=== PATIENT | male | born 1935 | race Caucasian/White ===

== ENCOUNTER 2016-06-18 13:27 | Inpatient (IN) | payer MEDICARE, OTHER ==
[2016-06-18 14:18] LABS: Hematocrit 38 % (42-52); Hemoglobin 12.9 g/dl (14.0-18.0); Mean Corpuscular HGB Conc 34 g/dl (31-36); Mean Corpuscular Hemoglobin 33 pg (27-31); Mean Corpuscular Volume 98 fL (80-94); Mean Platelet Volume 9 um3 (7.4-10.4); Red Blood Count 3.88 10^6/ul (4.0-5.4); Red Cell Distribution Width 13 % (10.5-15); White Blood Count 8.1 10^3/ul (3.5-10.8)
[2016-06-18 14:19] LABS: Add Diff/Slide Review? Slide Review Added; Comments Flag Yes
[2016-06-18 14:29] LABS: Albumin 4.3 g/dL (3.2-5.2); BUN/Creatinine Ratio 18.6 (8-20); EGFR African American 42.7 (>60); EGFR Non-African American 33.2 (>60); Globulin 3.3 g/dL (2-4); Potassium 4.9 mmol/L (3.5-5.0); Total Bilirubin 0.8 mg/dL (0.2-1.0); Total Protein 7.6 g/dL (6.4-8.9)
[2016-06-18 14:31] LABS: Troponin I 0.01 ng/mL (<0.04)
--- NOTE | 2016-06-18 14:39 | RAD ---
HISTORY: Left-sided numbness COMPARISONS: MRI of the head dated October 21, 2006 TECHNIQUE: Multiple contiguous axial CT scans were obtained of the head without intravenous contrast. FINDINGS: HEMORRHAGE/INFARCT: There is focal hypoattenuation consistent with subacute nonhemorrhagic infarct of the right posterior frontal lobe and anterior parietal lobe, extending into the anterior temporal lobe. Elsewhere, there is no hemorrhage or acute infarct MASSES/SHIFT: There is no mass or shift. EXTRA-AXIAL SPACES: There are no extra-axial fluid collections. SULCI AND VENTRICLES: The sulci and ventricles are normal in size and position for the patient's stated age. CEREBRUM: There is focal hypoattenuation of the right posterior frontal lobe, anterior parietal lobe, and anterior temporal lobe consistent with subacute nonhemorrhagic infarct of the right MCA distribution. This involves approximately one third of the MCA distribution. BRAINSTEM: There are no focal parenchymal abnormalities. CEREBELLUM: There are no focal parenchymal abnormalities. VESSELS: There is calcification of the cavernous segments of the internal carotid arteries bilaterally and of the distal vertebral arteries bilaterally. PARANASAL SINUSES: The paranasal sinuses are clear. ORBITS: The orbits are unremarkable. BONES AND SOFT TISSUE: No bone or soft tissue abnormalities are noted. OTHER: None IMPRESSION: SUBACUTE NONHEMORRHAGIC INFARCT OF THE RIGHT MCA DISTRIBUTION
[2016-06-18] MEDS ORDERED: Ondansetron INJ* 2 MG/ML VIAL IV PRN (15:21)
[2016-06-18] MEDS ORDERED: NS 0.9% 1000 ML* 1,000 ML IV SCH (15:30)
--- NOTE | 2016-06-18 16:13 | CONSULT ---
Consult Consult: 81 yo RHM, PPM, CABG, CKD, presenting with presumed fall out of bed overnight; he cannot clarify; his found him on the floor by the side of the bed at 3am , he was in his usual state of health when they went to bed the night before. He has no visual, speech/bulbar, language, gait or sensorimotor issues. He is on baby ASA at baseline; he may have remotely been on Coumadin (they could not clarify purpose; this may have been post CABG only; they deny/are unaware of any afib history). He has seen Dr Jerome last year, but ? just for NCS and neuropathy workup, with labs as below. Allergies/Meds pristiq, zantac, ASA 81, lisinopril, bisoprolol, lipitor PMH depression, GERD, HTN, HL, CABG, PPM, cataract surgery [facility] SH no tobacco; denies etoh issues vs says routine 2 glasses wine/night; retired; lives with ; ambulates independently at baseline ROS 10 point review negative save as per hpi. general Examination: no apparent distress, no edema, male of stated age Neurologic Examination Mental Status: alert, oriented, fund of knowledge normal, concentration and recent and remote memory observationally intact, fluent speech, reactive affect , no visual neglect. Cranial Nerves: III, IV, V, , VII, VIII, IX, X, XI and XII intact. Funduscopy reveals sharp discs. VFF with questionable inconsistent left lower outer quadrant vs hemianopsia, but confabulation/effort dependent, and looked intact at other times. EOMs intact. Pupils reactive but post surg Motor: normal bulk and tone. Power testing is 5/5. There is no pronator drift or tremor. Sensory: vibration and touch are intact save extinction to double simultaneous stim on left; no agrephesthesia left hand Reflexes: 1+ upper extremities and knees; ankles absent. Plantar responses are equivocal to flexor Coordination: finger to nose is symmetric and intact Gait: deferred Serologies: - Coags, trop, LFTs are all normal or negative; ALC 0.7 and MCV 100 (stable), bun/cr 36/1.9 (modestly worse than historic values) - Priors; ESR, haptoglobin ,aic, B12/MMA, TSH, Lyme were all fine; homocysteine 14; spep/SHAWNA with small IgG kappa band; BNP 250; LDL 79 in 2016 Imaging: - Head CT reviewed and has evolving right fronto, temporo-parietal MCA distribution ischemic stroke - 03/06 leg dopplers neg Physiology: 03/09 NCS (Dr Jerome) reviewed and looked pretty normal for age ( official report suggested mild abnormalities in terms of peroneal motor slowing) Impression: 81 yo RHM, PPM, CABG, CKD, presenting with left ? field cut and sensory neglect noted in context of confusion and nocturnal fall; CT with evolving, likely subacute right MCA infarct. Plan: 1. Continue ASA for now; if we find rationale for nursing home anticoag, would defer initiation for 2 weeks to minimize risk of hemorrhagic conversion of moderate sized stroke 2. TTE with bubble study eval for PFO, EF, thrombus 3. CUS eval right carotid; hydrate in case needs follow up dye based studies 4. PPM interrogation assess for sub clinical afib 5. Unclear if etoh overuse has borderline MCV elevation; monitor for tachyphylaxis 6. Will follow up on tests
[2016-06-18] MEDS ORDERED: Nitroglycerin TAB 0.4 MG* 0.4 MG TAB SL PRN (16:27)
--- NOTE | 2016-06-18 20:04 | HP ---
ADMISSION HISTORY AND PHYSICAL: DATE OF ADMISSION: 06/18/16 PRIMARY CARE PROVIDER: Dr. Winter. HEALTHCARE PROXY: His . CODE STATUS: Full. SOURCE OF INFORMATION: History obtained from interview with the patient and his , review of past medical records. RELIABILITY: Fair to poor. CHIEF COMPLAINT: Stroke. HISTORY OF PRESENT ILLNESS: This is an 81-year-old man with past medical history of CAD, status post CABG, permanent pacemaker placement, and recent history of TIA 1 week after [place], seen at [place], [place]. He had been in his usual state of health, had felt mildly more fatigued the day prior to presentation, went to bed, and was woke up on the floor around 3 a.m. He was found by his . Neither of them seem to remember the events surrounding the fall nor events after very well. The was able to help the patient get back into the bed after which they slept. The patient did have a conversation with his son the following morning in which he was confused, concerning to the son. The son activated EMS, brought the patient to [facility] where he was evaluated. In the emergency room, he had a brain CT with indication of a subacute nonhemorrhagic infarct in the right MCA distribution. The patient is fully awake and interactive; however, has limited memory, is unable to offer much other insight into the events surrounding his fall and presentation to the hospital. Of note, the patient takes an aspirin at home; however, he is unsure if he has been taking it daily. PAST MEDICAL HISTORY: 1. CABG, permanent pacemaker, [employer]. 2. Peripheral neuropathy. 3. Hypertension. 4. Hyperlipidemia. 5. History of TIA. 6. CKD. The patient reports some history of carotid occlusion, although I could find no record of this in the computer. HOME MEDICATIONS: 1. Zantac 150 mg twice daily. 2. Ritalin 10 mg twice daily. 3. Xanax 0.25 to 0.5 mg daily as needed for anxiety. 4. Remeron 60 mg at bedtime. 5. Pristiq 150 mg daily. 6. Nitroglycerin sublingual. 7. Eplerenone 25 mg daily. 8. Multivitamin 1 tablet daily. 9. Clopidogrel 75 mg daily. 10. Calcium/vitamin D 1 tab daily. 11. Bisoprolol 5 mg daily. 12. Atorvastatin 80 mg daily. 13. Aspirin 81 mg daily. ALLERGIES: AMIODARONE, RAMIPRIL, DILTIAZEM, SULFA ANTIBIOTICS. FAMILY HISTORY: Reviewed and noncontributory to this admission. SOCIAL HISTORY: No tobacco. Has 2 glasses of wine per night. No illicits. Lives with his . REVIEW OF SYSTEMS: Recently feeling fatigued. Otherwise, all other systems negative. PHYSICAL EXAMINATION GENERAL: Sitting up in bed, interactive, pleasant, in no apparent distress. VITAL SIGNS: 152/114, heart rate 70, respiratory rate 16, 100% on room air, T- max 98.3. HEENT: Oropharynx is clear. He has moist mucous membranes. Sclerae are anicteric. NECK: Nonelevated JVD. No cervical or supraclavicular lymphadenopathy. No carotid bruits. LUNGS: Clear to auscultation. HEART: He has a regular rate and rhythm. Soft 2/6 systolic ejection murmur. ABDOMEN: Soft, nontender, nondistended. EXTREMITIES: Warm and well perfused without clubbing, cyanosis, or edema. His right third toe has some erythema. It is not warm. Very small laceration. NEUROLOGIC: He is alert and oriented x3. Cranial nerves II through XII are intact. His strength is 5/5 throughout. He has some pronator drift in his left arm. He has immediate 3/3 word recall and 1/3 words at 3 minutes with prompting. His visual law are intact. He is able to spell world backwards. His speech is fluent. Illustrates some evidence of short-term memory loss, unable to indicate the events surrounding presentation. LABORATORY DATA AND DIAGNOSTIC STUDIES: Laboratory data reviewed. Hemoglobin 12.9, MCV of 98, platelets 139, INR is 1.11. Sodium 134, potassium 4.9, chloride 103, bicarb 25, BUN 33, creatinine 1.94, lactic acid 0.7. AST is 41, ALT is 33. Troponin I of 0.01. Data reviewed. Brain CT, impression: Subacute nonhemorrhagic infarct of the right MCA distribution. ASSESSMENT AND PLAN: This is an 81-year-old man, past medical history as outlined above, recent transient ischemic attack several weeks prior, now presenting with cerebrovascular accident in the right MCA distribution without residual deficits. Cerebrovascular accident: Discussed care with Neurology. I will not pursue MRI at this time. Should have pacemaker which is [employer] interrogated, was unable to contact the [employer] pacer representation this evening. Monitor on telemetry. Continue aspirin and Plavix. Check carotid Dopplers, especially in the setting of reported carotid artery stenosis. Transthoracic echocardiogram with bubble. Fasting lipids in the morning. Hemoglobin A1c. Continue statin. Chronic kidney disease: Dose medicines appropriately. Hypertension: Holding eplerenone. Permissive hypertension for the next 24 hours. Hyperlipidemia: Continue statin as well. DVT prophylaxis: Heparin subcu. CC: Dr. Winter * [id number]/CPS #: [id number] [facility]ITAL[facility]
[2016-06-18] MEDS: Famotidine TAB* 20 MG PO SCH (20:35)
[2016-06-18] MEDS: Methylphenidate TAB* 10 MG PO SCH (20:35)
[2016-06-18] MEDS: Mirtazapine TAB* 15 MG PO SCH (20:35)
--- NOTE | 2016-06-18 20:52 | RAD ---
INDICATION: Right MCA distribution infarct COMPARISON: CT brain June 18, 2016 TECHNIQUE: Transverse and longitudinal scans of the carotid and vertebral arteries were performed with oliva scale, color Doppler, and spectral Doppler imaging. Stenosis criteria is based on flow velocities that correlate with visual internal carotid artery diameter (NASCET criteria) FINDINGS: Right carotid: There is some occlusion of the right internal carotid artery. Left carotid: There is scant plaque involving the bifurcation. There is no spectral broadening. The peak systolic velocity of the internal carotid artery is 148 cm/s and the peak diastolic velocity 31 cm/s. The ICA/CCA ratio is calculated at 1.6. This corresponds to a less than 50% diameter stenosis. Right vertebral: Right vertebral waveforms are normal and the flow is antegrade. Left vertebral: Left vertebral waveforms are normal and the flow is antegrade. IMPRESSION: RIGHT INTERNAL CAROTID ARTERIAL OCCLUSION. NO EVIDENCE OF A HEMODYNAMICALLY SIGNIFICANT STENOSIS ON THE LEFT CPT II Codes: 3100F RS
[2016-06-18] MEDS ORDERED: Hydrocortisone 1% CREAM* 30 GM TUBE TOPICAL PRN (21:46)
[2016-06-18] MEDS: Heparin VIAL(*) 5000 UNITS/ML VIAL (FIVE THOUSAND) SUBCUT SCH (22:04)
[2016-06-18] MEDS: ALPRAZolam TAB* 0.25 MG PO PRN (23:09)
[2016-06-19] MEDS: Heparin VIAL(*) 5000 UNITS/ML VIAL (FIVE THOUSAND) SUBCUT SCH ×3 (05:12→20:08)
[2016-06-19 05:40] LABS: HDL Cholesterol 26.4 mg/dL
--- NOTE | 2016-06-19 07:58 | PN ---
Subjective - Subjective Reason for Note: Progress Note History: I obtained a history from the patient and his Donna Escalera. He fell out of bed yesterday in the night. Donna had trouble getting him out of the bed. During the day he kept dropping objects from his left hand. His son Harsha Escalera , who works at [employer], suggested evaluation in the ED. He has noticed no weakness on his left side and has been able to walk to the bathroom. There has been no headache, nausea, vomiting, chest pain, palpitations. This morning he is in no distress, he complains of not being able to remember things, but speaks fluently and without dysphasia. He recognizes me and is oriented. 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 Stage 3 chronic kidney disease (Chronic) N18.3 Current Medications: Current Medications Acetaminophen (Tylenol Tab*) 650 mg PO Q4H PRN PRN Reason: FEVER/PAIN Alprazolam (Xanax Tab*) 0.25 mg PO BEDTIME PRN PRN Reason: INSOMNIA Last Admin: 06/18/16 23:09 Dose: 0.25 mg Aspirin (Aspirin Ec Low Dose*) 81 mg PO DAILY [facility] Atorvastatin Calcium (Lipitor*) 80 mg PO DAILY [facility] Bisoprolol Fumarate (Zebeta Tab*) 5 mg PO DAILY [facility] Clopidogrel Bisulfate (Plavix Tab*) 75 mg PO DAILY [facility] Famotidine (Pepcid Tab*) 20 mg PO BID [facility] PRN Reason: Protocol Last Admin: 06/18/16 20:35 Dose: 20 mg Heparin Sodium (Porcine) (Heparin Vial(*)) 5,000 units SUBCUT Q8HR [facility] Last Admin: 06/19/16 05:12 Dose: 5,000 units Hydrocortisone (Hytone Cream 1%*) 1 applic TOPICAL BID PRN PRN Reason: rash Last Admin: 06/19/16 00:57 Dose: 1 applic Methylphenidate HCl (Ritalin Tab*) 10 mg PO BID [facility] Last Admin: 06/18/16 20:35 Dose: 10 mg Mirtazapine (Remeron Tab*) 60 mg PO BEDTIME [facility] Last Admin: 06/18/16 20:35 Dose: 60 mg Nitroglycerin (Nitroglycerin Tab 0.4 Mg*) 0.4 mg SL Q5M PRN PRN Reason: PAIN - CHEST Ondansetron HCl (Zofran Inj*) 4 mg IV Q4H PRN PRN Reason: NAUSEA/VOMITING - Review of Systems Constitutional Symptoms: No: Fever, Night Sweats Dermatology: Rash: No, Other: Yes - Hematoma left wrist and arm Pulmonary: Negative: Cough, Sputum, Hemoptysis, Wheezing, Respiratory Distress Cardiology: Negative: Chest Pain, Shortness of Breath, Palpitations, Swelling of Ankles Gastroenterology: Negative: Abdominal Pain, Nausea, Vomiting, Constipation, Diarrhea, Change in Bowel Habits Genital - Urinary: Negative: Hematuria, Polyuria Neurology: Positive: Change in Balancing, Change in Walking Negative: Headache, Migraines, Change in Vision - He is unaware of this, Diplopia, Dizziness, Change in Speech, Hx of Seizures Home Medications: Home Medications Medication Instructions Recorded Confirmed Type ALPRAZolam TAB* [Xanax TAB*] 0.25 - 0.5 mg PO DAILY PRN MDD 0.5 05/14/15 History mg Atorvastatin* [Lipitor 20 MG*] 20 mg PO DAILY 05/14/15 06/18/16 History Aspirin EC Low Dose* [Ecotrin EC 81 mg PO DAILY 06/18/16 06/18/16 History Low Dose*] Atorvastatin* [Lipitor*] 80 mg PO DAILY 06/18/16 06/18/16 History Bisoprolol TAB* [Zebeta TAB*] 5 mg PO DAILY 06/18/16 06/18/16 History Calcium Carbonate-Vitamin D 1 tab PO DAILY 06/18/16 06/18/16 History [Calcium 600 + D] Clopidogrel TAB* [Plavix TAB*] 75 mg PO DAILY 06/18/16 06/18/16 History Desvenlafaxine (NF) [Pristiq (NF)] 50 mg PO DAILY MDD 150 mg 06/18/16 06/18/16 History Desvenlafaxine(NF) [Pristiq(NF)] 100 mg PO DAILY MDD 150 mg 06/18/16 06/18/16 History Epleronone (NF) [Inspra (NF)] 25 mg PO DAILY 06/18/16 06/18/16 History Methylphenidate TAB* [Ritalin TAB*] 10 mg PO BID 06/18/16 06/18/16 History Mirtazapine TAB* [Remeron TAB*] 60 mg PO BEDTIME 06/18/16 06/18/16 History Multiple Vitamins W/ Minerals 1 tab PO DAILY 06/18/16 06/18/16 History [Centrum] Nitroglycerin TAB 0.4 MG* 0.4 mg SL Q5M PRN 06/18/16 06/18/16 History Ranitidine TAB (NF) [Zantac TAB 150 mg PO BID 06/18/16 06/18/16 History (NF)] Allergies: Allergies Allergy/AdvReac Type Severity Reaction Status Date / Time Amiodarone Allergy Intermediate Unknown Verified 05/14/15 11:27 Reaction Details Ramipril [From Altace] Allergy Intermediate Unknown Verified 05/14/15 11:27 Reaction Details Diltiazem [Cardizem] Allergy Unknown Verified 05/14/15 11:27 Reaction Details Sulfa Antibiotics Allergy Unknown Verified 05/14/15 11:24 Reaction Details Objective - Vital Signs Vital Signs: Vital Signs 06/18/16 06/18/16 06/18/16 15:43 17:03 17:07 Temperature 97.2 F 97.2 F Pulse Rate 69 72 72 Respiratory 16 Rate Blood Pressure 152/114 141/64 141/64 (mmHg) O2 Sat by Pulse 99 98 98 Oximetry 06/18/16 06/18/16 06/18/16 17:48 20:44 23:09 Temperature 97.7 F Pulse Rate 71 Respiratory 18 14 16 Rate Blood Pressure 140/65 (mmHg) O2 Sat by Pulse 97 Oximetry 06/18/16 06/19/16 06/19/16 23:59 01:09 04:05 Temperature 97.9 F 98.1 F Pulse Rate 74 81 Respiratory 20 19 20 Rate Blood Pressure 125/57 142/68 (mmHg) O2 Sat by Pulse 97 97 Oximetry 06/19/16 07:22 Temperature 98.9 F Pulse Rate 78 Respiratory 18 Rate Blood Pressure 129/63 (mmHg) O2 Sat by Pulse 97 Oximetry - Intake and Output Intake and Output: Intake & Output 06/16/16 06/17/16 06/18/16 06/19/16 11:59 11:59 11:59 11:59 Intake Total 0 Balance 0 Weight 175 lb 9.6 oz Intake: Oral 0 Other: Estimated Void Medium # Bowel Movements 0 # Voids 1 ADLs: Meal Record Start: 06/18/16 17: 05 Freq: DAILY@0900,1400,1800 Status: Active Created 06/18/16 17:05 [id number] (Rec: 06/18/16 17:05 [id number]) Document 06/18/16 18:00 [id number] (Rec: 06/18/16 23:12 [id number]) Intake and Output Start: 06/18/16 17: 05 Freq: DAILY@0600,1400,2200 Status: Active Created 06/18/16 17:05 [id number] (Rec: 06/18/16 17:05 [id number]) Document 06/18/16 22:00 [id number] (Rec: 06/18/16 23:12 [id number]) Document 06/19/16 06:00 [id number] (Rec: 06/19/16 06:15 [id number]) - Physical Exam General: No Cyanosis, No Anemia, No Jaundice, No Lymphadenopathy, No Clubbing Eye Exam: bilateral: Vision Field - left homonymous hemianopsia/innattention Skin: Abnormal: Other - hematoma left hand and arm fromfall Endocrine: Yes Central Obesity, No Acromegaly, No Vitiligo, No Flushing, No Acanthosis nigricans, No Violaceious striae, No Minerva Syndrome, No Buccal pigmenatation, No Gonzalez Crease Pigmentation Lungs and Chest: Yes: Chest Expansion Full, Chest Expansion Symetrica, Percussion Note Resonant, Vessicular Breath Sounds. No: Crackles, Wheezes Heart Rate and Rhythm: Regular JVP: Not Elevated Additional Cardiovascular: Yes: Normal Heart Sounds. No: Heart Murmur, Pedal Edema Abdominal Exam: Yes: Soft, Bowel Sounds Present. No: Abdominal Mass, Hepatomegaly, Splenomegaly, Abdominal Tenderness - Rheumotological System Joints: Other - left 3rd toe red and swollen - Extremities Cranial Nerves II-XII Intact: No - left facial sensory innattention Limbs: Normal Power, Normal Tone, Normal Coordination - finger-nose/rapid alt. movts, Abnormal Sensation - left sensory innattention, Abnormal Gait - slow, deliberate gait, Unsteady Romberg's Reflexes: Bilateral: Biceps - present, Triceps - present, Supinator - absent, Knee - diminished bilaterally, Ankle - absent, Plantar - downgoing bilaterally - Neuro Orientation: A/O x3 Speech: Normal Results - Results Lab Results: Laboratory Results - last 24 hr 06/19/16 04:36 Triglycerides 160 Cholesterol 111 LDL Cholesterol 53 HDL Cholesterol 26.4 Radiology Results: Patient Name: YAN ESCALERA Medical Record#: [id number] Ordering Physician: Chico Patterson MD Acct.#: [id number] : 1935 Age: 81 Sex: M Location: [address] [place] [address] MEDICAL/TELEMETRY Exam Date: 06/18/16 161 ADM Status: ADM Hector Order Information: VL CAROTID BILATERAL Accession Number: [id number] CPT: 47724 INDICATION: Right MCA distribution infarct COMPARISON: CT brain June 18, 2016 TECHNIQUE: Transverse and longitudinal scans of the carotid and vertebral arteries were performed with oliva scale, color Doppler, and spectral Doppler imaging. Stenosis criteria is based on flow velocities that correlate with visual internal carotid artery diameter (NASCET criteria) FINDINGS: Right carotid: There is some occlusion of the right internal carotid artery. Left carotid: There is scant plaque involving the bifurcation. There is no spectral broadening. The peak systolic velocity of the internal carotid artery is 148 cm/ s and the peak diastolic velocity 31 cm/s. The ICA/CCA ratio is calculated at 1.6. This corresponds to a less than 50% diameter stenosis. Right vertebral: Right vertebral waveforms are normal and the flow is antegrade. Left vertebral: Left vertebral waveforms are normal and the flow is antegrade. IMPRESSION: RIGHT INTERNAL CAROTID ARTERIAL OCCLUSION. NO EVIDENCE OF A HEMODYNAMICALLY SIGNIFICANT STENOSIS ON THE LEFT CPT II Codes: 3100F PQRS <Electronically signed by Gucci Stevenson MD in OV> 06/18/162048 Dictated By: Gucci Stevenson MD Dictated Date/Time: 06/18/162048 Transcribed Date/Time: 06/18/162031 Copy to: CC:Dexter Winter MD; Vin Ford MD; Chico Patterson MD Imaging - [facility] Imaging - [facility] Imaging - [facility] [address] [place] [id number] [address] [address] ph [phone]) ph ([phone]) ph ([phone]) 1 of 1 Patient Name: YAN ESCALERA Medical Record#: [id number] Ordering Physician: Yan Howard MD Acct.#: [id number] : 1935 Age: 81 Sex: M Location: EMERGENCY DEPARTMENT Exam Date: 06/18/16 1412 ADM Status: REG ER Order Information: CT BRAIN WO Accession Number: [id number] CPT: 33574 HISTORY: Left-sided numbness COMPARISONS: MRI of the head dated October 21, 2006 TECHNIQUE: Multiple contiguous axial CT scans were obtained of the head without intravenous contrast. FINDINGS: HEMORRHAGE/INFARCT: There is focal hypoattenuation consistent with subacute nonhemorrhagic infarct of the right posterior frontal lobe and anterior parietal lobe, extending into the anterior temporal lobe. Elsewhere, there is no hemorrhage or acute infarct MASSES/SHIFT: There is no mass or shift. EXTRA-AXIAL SPACES: There are no extra-axial fluid collections. SULCI AND VENTRICLES: The sulci and ventricles are normal in size and position for the patient's stated age. CEREBRUM: There is focal hypoattenuation of the right posterior frontal lobe, anterior parietal lobe, and anterior temporal lobe consistent with subacute nonhemorrhagic infarct of the right MCA distribution. This involves approximately one third of the MCA distribution. BRAINSTEM: There are no focal parenchymal abnormalities. CEREBELLUM: There are no focal parenchymal abnormalities. VESSELS: There is calcification of the cavernous segments of the internal carotid arteries bilaterally and of the distal vertebral arteries bilaterally. PARANASAL SINUSES: The paranasal sinuses are clear. ORBITS: The orbits are unremarkable. BONES AND SOFT TISSUE: No bone or soft tissue abnormalities are noted. OTHER: None IMPRESSION: SUBACUTE NONHEMORRHAGIC INFARCT OF THE RIGHT MCA DISTRIBUTION <Electronically signed by Luis Manuel Royal MD in OV> 06/18/16 1435 Dictated By: Luis Manuel Royal MD Dictated Date/Time: 06/18/16 1435 Transcribed Date/Time: 06/18/16 1434 Copy to: CC:Dexter Winter MD; Yan Howard MD 1 of 2 Assessment - Problem List Assessment: Patient Problems Aaron-inattention (Acute) Left homonymous hemianopsia (Acute) Right carotid artery occlusion (Acute) Aortic valve replaced (Chronic) Coronary arteriosclerosis (Chronic) Depression (Chronic) GERD (gastroesophageal reflux disease) (Chronic) History of atrial fibrillation (Chronic) History of coronary artery stent placement (Chronic) Hypercholesterolemia (Chronic) Hypertension (Chronic) Left bundle branch block (Chronic) Mitral valve replaced (Chronic) Pacemaker (Chronic) Presence of xenogenic heart valve (Chronic) Stage 3 chronic kidney disease (Chronic) Plan: Aaron-inattention (Acute)Left homonymous hemianopsia (Acute)Right carotid artery occlusion (Acute) I discussed his case with Dr. Michel Lopez for neurology. He likely has had a stroke related to his right carotid disease - likely occlusion. Other possibilities exist (atrial fibrillation, embolic), however are less likely. He is already on maximal medical therapy (dual antiplatelet and multiple risk factor intervention). Anticoagulation is not advisable due to risk of hemorrhage and likely lack of benefit. His BUN/Cr are too high at present for a confirmatory CTA for his right carotid occlusion. He can't have a MRI due to his pacemaker. We will continue maximal medical therapy. I will watch on telemetry another 24 hours. He will have PT/OT consult and also a referral to PM - I think he will benefit from this. His deficits: He has some degree of a left visual field cut, plus left visual inattention. He has some right hemispheric language/memory issues. He has left partial sensory inattention (he can't identify when he is touched simultaneously on the right and left side as he states right only, but is aware when touched on his left side alone). 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 It is a barrier to a CTA - but this wouldn't result in acute intervention. Resuscitation status - he wants to be full code I discussed the above with the patient and his and they agree with the management plan
--- NOTE | 2016-06-19 08:45 | PN ---
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 No overnight events. Exam with stable left double simult stim extinction without melba sensory loss, and inconsistent but at times noted left lateral field vs upper quadrant deficit. 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 Confirmation of right carotid disease with a dye based study (CTA or formal angio) once renal function improves would be helpful for bed bug exterminator management, as high grade stenosis may be surgically amenable vs continued med mgmt for complete occlusion. Would complete cardiac w/ u with echo, PPM interrogation in case that discovery of subclinical afib may lead to anticoagulation. No motor deficits but PT/OT eval will be helpful to see if has acute vs other rehab needs in terms of gait, visuospatial perception. d/w dr Winter.
[2016-06-19] MEDS: Atorvastatin* 80 MG TAB PO SCH (09:01)
[2016-06-19] MEDS: Famotidine TAB* 20 MG PO SCH ×2 (09:01→20:04)
[2016-06-19] MEDS: Aspirin EC Low Dose* 81 MG TAB.EC PO SCH (09:01)
[2016-06-19] MEDS: Clopidogrel TAB* 75 MG PO SCH (09:01)
[2016-06-19] MEDS: Bisoprolol TAB* 5 MG PO SCH (09:01)
[2016-06-19] MEDS: Methylphenidate TAB* 10 MG PO SCH ×2 (09:02→20:04)
[2016-06-19] MEDS: CMC:Desvenlafaxine (NF) 50 MG TAB PO SCH (11:31)
--- NOTE | 2016-06-19 14:29 | ECHO ---
Patient: YAN ESCALERA [facility] Rec#: [id number] : 1935 Date: 06/19/2016 Age: 81y Height: 177.8 cm / 70.0 in Weight: 79.4 kg / 175.0 lbs Sex: M BSA: 1.97 Room#: 448 Admit Date#: 06/18/2016 Type: Inpatient Referring: Chico Patterson MD Reading: Ramses Pelayo MD Obstetrics Gyn: Naz Pride Obstetrics Gyn: Tamy Louis RDCS CC: Dexter Winter MD Transthoracic Echocardiogram Indication: CVA BP: 142/68 HR: 73 Rhythm: Paced Findings History: Pacermaker insert, CABG, HTN, HLD, TIA, CKD. S/P AV replacement and MV replacement. Technical Comments: The study quality is fair. Completed at 1330. The study is technically limited due to patient body habitus. Left Ventricle: The left ventricular chamber size is decreased. Mild concentric left ventricular hypertrophy is observed. There is increased basal septal hypertrophy noted without evidence of an increased gradient across the left ventricular outflow tract. There is normal left ventricular systolic function. The estimated ejection fraction is 55-60%. Post surgical hypokinesis of the interventricular septum is observed consistent with valve replacement. The assessment of diastolic function is non-diagnostic. Left Atrium: The left atrial chamber size is normal. Right Ventricle: The right ventricular cavity size is normal. The right ventricular global systolic function is normal. The septum has abnormal paradoxical motion consistent with post-operative pressure. A pacemaker wire is visualized in the right ventricle. Right Atrium: The right atrial cavity size is normal. A pacemaker wire is visualized in the right atrium. No atrial septal defected is demonstrated by color Doppler and agitated contrast. There is no patent foramen ovale visualized. A patent foramen ovale is not demonstrated with color Doppler and agitated contrast. Aortic Valve: A bio-prosthetic aortic valve is present. The bio-prosthetic aortic valve appears to be functioning normally. Mitral Valve: There is no evidence of mitral regurgitation. A bioprosthetic mitral valve is present. The bioprosthetic mitral valve appears to be functioning normally. Tricuspid Valve: The tricuspid valve leaflets are normal. The tricuspid valve leaflets are mildly thickened. There is mild tricuspid regurgitation. No pulmonary hypertension is noted. There is no tricuspid stenosis. Pulmonic Valve: The pulmonic valve appears normal. There is a trace pulmonic regurgitation. There is no pulmonic stenosis. Pericardium: A pericardial fat pad is visualized. Aorta: There is no dilatation of the ascending aorta. There is no dilatation of the aortic arch. There is no dilation of the aortic root. Pulmonary Artery: The main pulmonary artery appears normal. Venous: The inferior vena cava appears normal in size. There is a greater than 50% respiratory change in the inferior vena cava dimension. Contrast: Normal saline was used as contrast for the bubble study. Intravenous contrast was used to help determine presence of intracardiac shunting. Conclusions Mild concentric left ventricular hypertrophy is observed. The estimated ejection fraction is 55-60%. Post surgical hypokinesis of the interventricular septum is observed consistent with valve replacement. A pacemaker wire is visualized in the right ventricle. The bio-prosthetic aortic valve appears to be functioning normally. The bioprosthetic mitral valve appears to be functioning normally. There is mild tricuspid regurgitation. Negitive IV saline contrast study Similar to 10.25.16 If there is high clinical suspicion for a cardioembolic source, consider transesophageal echo. Measurements Name Value Normal Range LVPWd (MM) 0.96 cm - Name Value Normal Range RVDdMajor (2D) 3.8 cm (2.2 - 4.4) RAd ISD 4CH 4.4 cm (3.4 - 4.9) RA (A4C)W 3.6 cm (2.9 - 4.6) IVSd (2D) 1.2 cm (0.6 - 1) LVPWd (2D) 0.92 cm (0.6 - 1) LVIDd (2D) 3.4 cm (3.6 - 5.4) LVIDs (2D) 2.3 cm - LV FS (2D) 32.1 % (25 - 45) Aortic Annulus 1.8 cm (1.4 - 2.6) Ao root diameter (2D) 2.8 cm (2.1 - 3.5) Ascending Ao 2.6 cm (2.1 - 3.4) Aortic arch 2.5 cm (1.8 - 3.4) Descending Ao 0.3 cm - LA dimension (AP) 2D 3.7 cm (2.3 - 3.8) LAd ISD 4CH 4.6 cm (2.9 - 5.3) LA ISD 4CH W 4.3 cm (2.5 - 4.5) Name Value Normal Range LA ESV SP 4CH (A/L) 46 ml - LA ESV SP 2CH (A/L) 45 ml - LA ESV BP (A/L) 48 ml - LA ESV BP (A/L) index 24 ml/m2 - LA ESV SP 4CH (MOD) 38 ml - LA ESV SP 2CH (MOD) 42 ml - Name Value Normal Range MV E-wave Vmax 0.97 m/sec - MV deceleration time 242 msec - MV A-wave Vmax 1.3 m/sec - MV E:A ratio 0.77 ratio - LV septal e' Vmax 0.05 m/sec - LV lateral e' Vmax 0.09 m/sec - LV E:e' septal ratio 20 ratio - LV E:e' lateral ratio 11.1 ratio - Name Value Normal Range AV Vmax 2 m/sec - AV VTI 26.7 cm - AV peak gradient 16.7 mmHg - AV mean gradient 7.9 mmHg - LVOT diameter 1.8 cm - LVOT Vmax 0.9 m/sec - LVOT VTI 13.5 cm - LVOT peak gradient 2.9 mmHg - LVOT mean gradient 1.3 mmHg - SV LVOT 36 ml - MICAH (continuity Vmax) 1.1 cm2 - MICAH (continuity VTI) 1.3 cm2 - Name Value Normal Range MV Vmax 0.74 m/sec - MV VTI 15.9 cm - MV peak gradient 3.82 mmHg - MV mean gradient 1.31 mmHg - MV PHT 77 msec - MVA (PHT) 2.9 cm2 - MVA (continuity VTI) 2.2 cm2 - Name Value Normal Range TR Vmax 2.37 m/sec - TR peak gradient 23 mmHg - RAP 3 mmHg - RVSP 26 mmHg - IVC diameter 1.4 cm - Name Value Normal Range PV Vmax 0.64 m/sec - PV peak gradient 1.63 mmHg -
--- NOTE | 2016-06-19 16:26 | ED ---
Brian Rivera Karl, scribed for Greg Howard MD on 06/18/16 at 1344 . Altered Mental Status - HPI Summary HPI Summary: Pt is an 81 y/o male BIBA that presents to the ED c/o an altered mental status. Per EMS, pt was found by his at approx 03:00 this morning and is believed to have fallen out of bed. Pt has no memory of this event or any of his recent erratic behavior such as showering with his clothes,talking with the phone upside down, and taking everything out of his cabinets and putting them in the sink. Pt c/o a UMANA, pain in his legs. Pt's stated that he takes ASA everyday , including this morning. Hx: TIA 05/19/16. - History Of Current Complaint Chief Complaint: EDAltMentalStatus Stated Complaint: AMS Time Seen by Provider: 06/18/16 13:34 Hx Obtained From: Patient, Family/Rehabilitation Case Coordinator - , EMS Hx From Patient Unobtainable Due To: Altered Mental Status Timing: Constant Severity Initially: Moderate Severity Currently: Moderate Character: Confusion Aggravating Factor(s): Nothing Alleviating Factor(s): Nothing Associated Signs And Symptoms: Positive: Headache, Recent Trauma - fall from bed - Risk Factors CVA Risk Factor: Prior CVA/TIA - Allergies/Home Medications Allergies/Adverse Reactions: Allergies Allergy/AdvReac Type Severity Reaction Status Date / Time Amiodarone Allergy Intermediate Unknown Verified 05/14/15 11:27 Reaction Details Ramipril [From Altace] Allergy Intermediate Unknown Verified 05/14/15 11:27 Reaction Details Diltiazem [Cardizem] Allergy Unknown Verified 05/14/15 11:27 Reaction Details Sulfa Antibiotics Allergy Unknown Verified 05/14/15 11:24 Reaction Details Home Medications: Home Medications Aspirin EC Low Dose* [Ecotrin EC Low Dose*] 81 mg PO DAILY 06/18/16 [History Confirmed 06/18/16] Atorvastatin* [Lipitor*] 80 mg PO DAILY 06/18/16 [History Confirmed 06/18/16] Bisoprolol TAB* [Zebeta TAB*] 5 mg PO DAILY 06/18/16 [History Confirmed 06/18/16 ] Calcium Carbonate-Vitamin D [Calcium 600 + D] 1 tab PO DAILY 06/18/16 [History Confirmed 06/18/16] Clopidogrel TAB* [Plavix TAB*] 75 mg PO DAILY 06/18/16 [History Confirmed ] Desvenlafaxine (NF) [Pristiq (NF)] 50 mg PO DAILY MDD 150 mg 06/18/16 [History Confirmed 06/18/16] Desvenlafaxine(NF) [Pristiq(NF)] 100 mg PO DAILY MDD 150 mg 06/18/16 [History Confirmed 06/18/16] Epleronone (NF) [Inspra (NF)] 25 mg PO DAILY 06/18/16 [History Confirmed ] Methylphenidate TAB* [Ritalin TAB*] 10 mg PO BID 06/18/16 [History Confirmed ] Mirtazapine TAB* [Remeron TAB*] 60 mg PO BEDTIME 06/18/16 [History Confirmed ] Multiple Vitamins W/ Minerals [Centrum] 1 tab PO DAILY 06/18/16 [History Confirmed 06/18/16] Nitroglycerin TAB 0.4 MG* 0.4 mg SL Q5M PRN 06/18/16 [History Confirmed 06/18/16 ] Ranitidine TAB (NF) [Zantac TAB (NF)] 150 mg PO BID 06/18/16 [History Confirmed 06/18/16] PMH/Surg Hx/FS Hx/Imm Hx Neurological History: Reports: Hx Transient Ischemic Attacks (TIA) - Family History Known Family History: Negative: Other - malignant hyperthermia, anesthesia reaction - Social History Alcohol Use: Daily Alcohol Amount: glass of wine Substance Use Type: Reports: None Smoking Status (MU): Never Smoked Tobacco Review of Systems Constitutional: Negative Eyes: Negative ENT: Negative Cardiovascular: Negative Respiratory: Negative Gastrointestinal: Negative Genitourinary: Negative Positive: Myalgia - pain in legs Skin: Negative Positive: Headache Psychological: Normal All Other Systems Reviewed And Are Negative: Yes Physical Exam Triage Information Reviewed: Yes Vital Signs On Initial Exam: Initial Vital Signs Temp 98.3 F 06/18/16 13:42 Pulse 71 06/18/16 13:42 Resp 20 06/18/16 13:42 BP 133/69 06/18/16 13:42 Pulse Ox 99 06/18/16 13:42 Vital Signs Reviewed: Yes Appearance: Positive: Well-Appearing, No Pain Distress Skin: Positive: Warm, Skin Color Reflects Adequate Perfusion, Dry Head/Face: Positive: Normal Head/Face Inspection Eyes: Positive: Normal, Other: ENT: Positive: Normal ENT inspection Neck: Positive: Supple, Nontender Respiratory/Lung Sounds: Positive: Clear to Auscultation, Breath Sounds Present Cardiovascular: Positive: RRR Abdomen Description: Positive: Nontender, Soft Bowel Sounds: Positive: Present Musculoskeletal: Positive: Normal Neurological: Positive: Other - extinction in the left arm, decreased sensation in left leg, left visual field cut Psychiatric: Positive: Normal, Affect/Mood Appropriate Diagnostics - Vital Signs Vital Signs Temp Pulse Resp BP Pulse Ox 06/18/16 15:00 69 100 06/18/16 14:30 66 20 90 06/18/16 13:42 98.3 F 71 20 133/69 99 - Laboratory Lab Results: Lab Results 06/18/16 06/18/16 06/18/16 Range/Units 13:50 13:50 13:50 WBC 8.1 (3.5-10.8) 10^3/ul RBC 3.88 L (4.0-5.4) 10^6/ul Hgb 12.9 L (14.0-18.0) g/dl Hct 38 L (42-52) % MCV 98 H (80-94) fL MCH 33 H (27-31) pg MCHC 34 (31-36) g/dl RDW 13 (10.5-15) % Plt Count 139 L (150-450) 10^3/ul MPV 9 (7.4-10.4) um3 Neut % (Auto) 68.2 (38-83) % Lymph % (Auto) 9.0 L (25-47) % [place] % (Auto) 20.1 H (1-9) % Eos % (Auto) 2.1 (0-6) % Baso % (Auto) 0.6 (0-2) % Absolute Neuts (auto) 5.5 (1.5-7.7) 10^3/ul Absolute Lymphs (auto) 0.7 L (1.0-4.8) 10^3/ul Absolute Monos (auto) 1.6 H (0-0.8) 10^3/ul Absolute Eos (auto) 0.2 (0-0.6) 10^3/ul Absolute Basos (auto) 0 (0-0.2) 10^3/ul Absolute Nucleated RBC 0 10^3/ul Nucleated RBC % 0 INR (Anticoag Therapy) (0.89-1.11) Sodium 134 (133-145) mmol/L Potassium 4.9 (3.5-5.0) mmol/L Chloride 103 (101-111) mmol/L Carbon Dioxide 25 (22-32) mmol/L Anion Gap 6 (2-11) mmol/L BUN 36 H (6-24) mg/dL Creatinine 1.94 H (0.67-1.17) mg/dL Est GFR ( Amer) 42.7 (>60) Est GFR (Non-Af Amer) 33.2 (>60) BUN/Creatinine Ratio 18.6 (8-20) Glucose 100 (70-100) mg/dL Hemoglobin A1c (Less than 6.0) % Lactic Acid 0.7 (0.5-2.0) mmol/L Calcium 10.0 (8.6-10.3) mg/dL Total Bilirubin 0.80 (0.2-1.0) mg/dL AST 41 H (13-39) U/L ALT 33 (7-52) U/L Alkaline Phosphatase 74 (34-104) U/L Troponin I 0.01 (<0.04) ng/mL Total Protein 7.6 (6.4-8.9) g/dL Albumin 4.3 (3.2-5.2) g/dL Globulin 3.3 (2-4) g/dL Albumin/Globulin Ratio 1.3 (1-3) 06/18/16 06/18/16 Range/Units 13:50 13:50 WBC (3.5-10.8) 10^3/ul RBC (4.0-5.4) 10^6/ul Hgb (14.0-18.0) g/dl Hct (42-52) % MCV (80-94) fL MCH (27-31) pg MCHC (31-36) g/dl RDW (10.5-15) % Plt Count (150-450) 10^3/ul MPV (7.4-10.4) um3 Neut % (Auto) (38-83) % Lymph % (Auto) (25-47) % [place] % (Auto) (1-9) % Eos % (Auto) (0-6) % Baso % (Auto) (0-2) % Absolute Neuts (auto) (1.5-7.7) 10^3/ul Absolute Lymphs (auto) (1.0-4.8) 10^3/ul Absolute Monos (auto) (0-0.8) 10^3/ul Absolute Eos (auto) (0-0.6) 10^3/ul Absolute Basos (auto) (0-0.2) 10^3/ul Absolute Nucleated RBC 10^3/ul Nucleated RBC % INR (Anticoag Therapy) 1.11 (0.89-1.11) Sodium (133-145) mmol/L Potassium (3.5-5.0) mmol/L Chloride (101-111) mmol/L Carbon Dioxide (22-32) mmol/L Anion Gap (2-11) mmol/L BUN (6-24) mg/dL Creatinine (0.67-1.17) mg/dL Est GFR ( Amer) (>60) Est GFR (Non-Af Amer) (>60) BUN/Creatinine Ratio (8-20) Glucose (70-100) mg/dL Hemoglobin A1c 5.2 (Less than 6.0) % Lactic Acid (0.5-2.0) mmol/L Calcium (8.6-10.3) mg/dL Total Bilirubin (0.2-1.0) mg/dL AST (13-39) U/L ALT (7-52) U/L Alkaline Phosphatase (34-104) U/L Troponin I (<0.04) ng/mL Total Protein (6.4-8.9) g/dL Albumin (3.2-5.2) g/dL Globulin (2-4) g/dL Albumin/Globulin Ratio (1-3) Result Diagrams: 06/18/16 13:50 06/18/16 13:50 Lab Statement: Any lab studies that have been ordered have been reviewed, and results considered in the medical decision making process. - CT CT Brain CT Interpretation: Positive (See Comments) CT Interpretation Completed By: Radiologist - IMPRESSION: SUBACUTE NONHEMORRHAGIC INFARCT OF THE RIGHT MCA DISTRIBUTION - EKG 14:29 Cardiac Rate: NL - 67 bpm EKG Interpretation: Ventricular paced rhythm, No STEMI National Institutes Of Health - NIH Scale Level of Consciousness: Alert/Keenly Responsive Ask Patient the Month and His/Her Age: Both Correct Ask Pt to Open/Close Eyes and Hand Sizer/Release Non-Paretic Hand: Both Correctly Best Gaze (Only Horizontal Eye Movement): Partial Gaze Palsy Visual Field Testing: Partial Hemianopia - Left field cut Facial Paresis-Pt to Smile & Close Eyes or Grimace Symmetry: Normal/Symmetrical Motor Function - Right Arm: No Drift-Holds 10 Seconds Motor Function - Left Arm: No Drift-Holds 10 Seconds Motor Function - Right Leg: No Drift-Holds 10 Seconds Motor Function - Left Leg: No Drift-Holds 10 Seconds Limb Ataxia-Must be out of Proportion to Weakness Present: Absent Sensory (Use Pinprick to Test Arms/Legs/Trunk/Face): Pinprick Less on Affected - RLE Best Language (Describe Picture, Name Items): No Aphasia Dysarthria (Read Several Words): Normal Extinction and Inattention: Inattention - Exticnction in RUE Total Score: 4 Altered Mental Statu Course/Dx - Course Course Of Treatment: Mr. Mcmahan presented with some confusion and bizarre behavior witness by his after being found on the floor by the bed at 0300. There is no reliable time of onset. He was found to have a mild stroke on the NIH scale and a head CT showed a fairly large subacute CVA on the left. - Diagnoses Discharge Diagnoses: STROKE - Provider Notifications Discussed Care Of Patient With: Dr. Whitley (Neurology) at 14:30. Dr. Ford [id number] Discharge - Discharge Plan Condition: Fair Disposition: ADMITTED TO [facility] documentation as recorded by the Brian sherwood Karl accurately reflects the service I personally performed and the decisions made by me, Greg Howard MD.
[2016-06-19] MEDS: ALPRAZolam TAB* 0.25 MG PO PRN (20:04)
[2016-06-19] MEDS: Mirtazapine TAB* 15 MG PO SCH (20:04)
[2016-06-20] MEDS: Heparin VIAL(*) 5000 UNITS/ML VIAL (FIVE THOUSAND) SUBCUT SCH ×3 (06:05→20:38)
[2016-06-20 06:54] LABS: BUN/Creatinine Ratio 21.8 (8-20); Calcium 9.5 mg/dL (8.6-10.3); EGFR African American 51.5 (>60)
[2016-06-20 06:58] LABS: Potassium 4.6 mmol/L (3.5-5.0)
[2016-06-20 07:42] LABS: Hematocrit 39 % (42-52); Hemoglobin 13.7 g/dl (14.0-18.0); Mean Corpuscular HGB Conc 35 g/dl (31-36); Mean Corpuscular Hemoglobin 34 pg (27-31); Mean Corpuscular Volume 98 fL (80-94); Mean Platelet Volume 9 um3 (7.4-10.4); Red Blood Count 4.03 10^6/ul (4.0-5.4); Red Cell Distribution Width 13 % (10.5-15); White Blood Count 7.3 10^3/ul (3.5-10.8)
--- NOTE | 2016-06-20 07:57 | PN ---
Subjective - Subjective Reason for Note: Progress Note History: He is nauseated this morning and has some left upper quadrant abdominal pain. He denies chest pain, palpitations. He has no dyspnea. This is not a common symptom for him. It started 2 hours ago. He has no change in his neurological symptoms - no headache. He is unaware of visual change and of any compromise of his left side. He is aware of poor balance. He is anxious and worried about what comes next. 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 Coronary arteriosclerosis (Chronic) I25.10 Depression (Chronic) F32.9 GERD (gastroesophageal reflux disease) (Chronic) K21.9 History of atrial fibrillation (Chronic) Z86.79 History of coronary artery stent placement (Chronic) Z95.5 Hypercholesterolemia (Chronic) E78.00 Hypertension (Chronic) I10 Left bundle branch block (Chronic) I44.7 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 Pacemaker (Chronic) Z95.0 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 Stage 3 chronic kidney disease (Chronic) N18.3 Current Medications: Current Medications Acetaminophen (Tylenol Tab*) 650 mg PO Q4H PRN PRN Reason: FEVER/PAIN Alprazolam (Xanax Tab*) 0.25 mg PO BEDTIME PRN PRN Reason: INSOMNIA Last Admin: 06/19/16 20:04 Dose: 0.25 mg Aspirin (Aspirin Ec Low Dose*) 81 mg PO DAILY [facility] Last Admin: 06/19/16 09:01 Dose: 81 mg Atorvastatin Calcium (Lipitor*) 80 mg PO DAILY [facility] Last Admin: 06/19/16 09:01 Dose: 80 mg Bisoprolol Fumarate (Zebeta Tab*) 5 mg PO DAILY [facility] Last Admin: 06/19/16 09:01 Dose: 5 mg Clopidogrel Bisulfate (Plavix Tab*) 75 mg PO DAILY [facility] Last Admin: 06/19/16 09:01 Dose: 75 mg Desvenlafaxine Succinate (Pristiq (Nf)) 150 mg PO DAILY [facility] Last Admin: 06/19/16 11:31 Dose: 150 mg Famotidine (Pepcid Tab*) 20 mg PO BID [facility] PRN Reason: Protocol Last Admin: 06/19/16 20:04 Dose: 20 mg Heparin Sodium (Porcine) (Heparin Vial(*)) 5,000 units SUBCUT Q8HR [facility] Last Admin: 06/20/16 06:05 Dose: 5,000 units Hydrocortisone (Hytone Cream 1%*) 1 applic TOPICAL BID PRN PRN Reason: rash Last Admin: 06/19/16 00:57 Dose: 1 applic Methylphenidate HCl (Ritalin Tab*) 10 mg PO BID [facility] Last Admin: 06/19/16 20:04 Dose: 10 mg Mirtazapine (Remeron Tab*) 60 mg PO BEDTIME [facility] Last Admin: 06/19/16 20:04 Dose: 60 mg Nitroglycerin (Nitroglycerin Tab 0.4 Mg*) 0.4 mg SL Q5M PRN PRN Reason: PAIN - CHEST Ondansetron HCl (Zofran Inj*) 4 mg IV Q4H PRN PRN Reason: NAUSEA/VOMITING - Review of Systems Constitutional Symptoms: No: Fever, Night Sweats Pulmonary: Negative: Cough, Sputum, Respiratory Distress, Shortness of Breath Cardiology: Negative: Chest Pain, Shortness of Breath, Palpitations, Swelling of Ankles Gastroenterology: Positive: Nausea, Anorexia, Constipation Negative: Abdominal Pain, Vomiting Genital - Urinary: Negative: Dysuria, Polyuria Neurology: Positive: Change in Vision - not subjective, Change in Balancing, Change in Walking Negative: Headache, Diplopia, Dizziness, Numbness\\Paresthesiae Psychiatry: Positive: Depression, Anxiety Home Medications: Home Medications Medication Instructions Recorded Confirmed Type ALPRAZolam TAB* [Xanax TAB*] 0.25 - 0.5 mg PO DAILY PRN MDD 0.5 05/14/15 History mg Atorvastatin* [Lipitor 20 MG*] 20 mg PO DAILY 05/14/15 06/18/16 History Aspirin EC Low Dose* [Ecotrin EC 81 mg PO DAILY 06/18/16 06/18/16 History Low Dose*] Atorvastatin* [Lipitor*] 80 mg PO DAILY 06/18/16 06/18/16 History Bisoprolol TAB* [Zebeta TAB*] 5 mg PO DAILY 06/18/16 06/18/16 History Calcium Carbonate-Vitamin D 1 tab PO DAILY 06/18/16 06/18/16 History [Calcium 600 + D] Clopidogrel TAB* [Plavix TAB*] 75 mg PO DAILY 06/18/16 06/18/16 History Desvenlafaxine (NF) [Pristiq (NF)] 50 mg PO DAILY MDD 150 mg 06/18/16 06/18/16 History Desvenlafaxine(NF) [Pristiq(NF)] 100 mg PO DAILY MDD 150 mg 06/18/16 06/18/16 History Epleronone (NF) [Inspra (NF)] 25 mg PO DAILY 06/18/16 06/18/16 History Methylphenidate TAB* [Ritalin TAB*] 10 mg PO BID 06/18/16 06/18/16 History Mirtazapine TAB* [Remeron TAB*] 60 mg PO BEDTIME 06/18/16 06/18/16 History Multiple Vitamins W/ Minerals 1 tab PO DAILY 06/18/16 06/18/16 History [Centrum] Nitroglycerin TAB 0.4 MG* 0.4 mg SL Q5M PRN 06/18/16 06/18/16 History Ranitidine TAB (NF) [Zantac TAB 150 mg PO BID 06/18/16 06/18/16 History (NF)] Allergies: Allergies Allergy/AdvReac Type Severity Reaction Status Date / Time Amiodarone Allergy Intermediate Unknown Verified 05/14/15 11:27 Reaction Details Ramipril [From Altace] Allergy Intermediate Unknown Verified 05/14/15 11:27 Reaction Details Diltiazem [Cardizem] Allergy Unknown Verified 05/14/15 11:27 Reaction Details Sulfa Antibiotics Allergy Unknown Verified 05/14/15 11:24 Reaction Details Objective - Vital Signs Vital Signs: Vital Signs 06/19/16 06/19/16 06/19/16 11:27 15:32 19:19 Temperature 97.6 F 98.6 F 99.3 F Pulse Rate 78 75 74 Respiratory 18 16 16 Rate Blood Pressure 150/68 127/67 137/66 (mmHg) O2 Sat by Pulse 100 93 95 Oximetry 06/19/16 06/19/16 06/19/16 19:20 20:04 22:04 Temperature 99.3 F Pulse Rate 74 Respiratory 16 19 17 Rate Blood Pressure 137/66 (mmHg) O2 Sat by Pulse 95 Oximetry 06/20/16 06/20/16 00:04 03:13 Temperature 98.4 F 98.3 F Pulse Rate 81 74 Respiratory 20 16 Rate Blood Pressure 150/64 146/66 (mmHg) O2 Sat by Pulse 97 96 Oximetry - Intake and Output Intake and Output: Intake & Output 06/17/16 06/18/16 06/19/16 06/20/16 11:59 11:59 11:59 11:59 Intake Total 600 560 Balance 600 560 Weight 175 lb 9.6 oz Intake: Oral 600 560 Other: Estimated Void Medium Medium # Bowel Movements 0 0 # Voids 1 1 ADLs: Meal Record Start: 06/18/16 17: 05 Freq: DAILY@0900,1400,1800 Status: Active Created 06/18/16 17:05 [id number] (Rec: 06/18/16 17:05 [id number] TELE-C03) Document 06/18/16 18:00 [id number] (Rec: 06/18/16 23:12 [id number] TELE-C01) Document 06/19/16 10:21 [id number] (Rec: 06/19/16 10:21 [id number] TELE-C07) Document 06/19/16 13:52 [id number] (Rec: 06/19/16 13:52 [id number] TELE-C13) Intake and Output Start: 06/18/16 17: 05 Freq: DAILY@0600,1400,2200 Status: Active Created 06/18/16 17:05 [id number] (Rec: 06/18/16 17:05 [id number] TELE-C03) Document 06/18/16 22:00 [id number] (Rec: 06/18/16 23:12 [id number] TELE-C01) Document 06/19/16 06:00 [id number] (Rec: 06/19/16 06:15 [id number] TELE-C34) Document 06/19/16 13:52 [id number] (Rec: 06/19/16 13:52 [id number] TELE-C13) Document 06/19/16 22:00 [id number] (Rec: 06/19/16 22:22 [id number] TELE-C07) Document 06/20/16 05:40 [id number] (Rec: 06/20/16 05:40 [id number] [facility]-C32) - Physical Exam General: No Cyanosis, No Anemia, No Jaundice, No Clubbing Skin: Normal: Rash Lungs and Chest: Yes: Chest Expansion Full, Chest Expansion Symetrica, Percussion Note Resonant, Vessicular Breath Sounds. No: Crackles, Wheezes Heart Rate and Rhythm: Regular JVP: Not Elevated Additional Cardiovascular: Yes: Normal Heart Sounds. No: Heart Murmur, Pedal Edema Abdominal Exam: Yes: Soft, Abdominal Tenderness - slightest tendernes LUQ, Bowel Sounds Present. No: Abdominal Mass, Hepatomegaly, Splenomegaly, Guarding , Rebound Tenderness - Extremities Cranial Nerves II-XII Intact: No - no facial weakness. Left sensory inattention Limbs: Normal Power, Normal Tone, Normal Coordination, Abnormal Sensation - left sensory inattention - Neuro Orientation: A/O x3 Speech: Normal Results - Results Lab Results: Laboratory Results - last 24 hr 06/20/16 06/20/16 06:17 07:22 WBC 7.3 RBC 4.03 Hgb 13.7 L Hct 39 L MCV 98 H MCH 34 H MCHC 35 RDW 13 Plt Count 143 L MPV 9 Neut % (Auto) 63.4 Lymph % (Auto) 14.0 L [place] % (Auto) 17.3 H Eos % (Auto) 4.5 Baso % (Auto) 0.8 Absolute Neuts (auto) 4.6 Absolute Lymphs (auto) 1.0 Absolute Monos (auto) 1.3 H Absolute Eos (auto) 0.3 Absolute Basos (auto) 0.1 Absolute Nucleated RBC 0 Nucleated RBC % 0 Sodium 135 Potassium 4.6 Chloride 106 Carbon Dioxide 18 L Anion Gap 11 BUN 36 H Creatinine 1.65 H Est GFR ( Amer) 51.5 Est GFR (Non-Af Amer) 40.0 BUN/Creatinine Ratio 21.8 H Glucose 91 Calcium 9.5 Other Results/Reports: Transthoracic echocardiogram conclusions: The estimated ejection fraction is 55-60%. Post surgical hypokinesis of the interventricular septum is observed consistent with valve replacement. A pacemaker wire is visualized in the right ventricle. The bio-prosthetic aortic valve appears to be functioning normally. The bioprosthetic mitral valve appears to be functioning normally. There is mild tricuspid regurgitation. Negitive IV saline contrast study Similar to 10.25.16 If there is high clinical suspicion for a cardioembolic source, consider transesophageal echo. Assessment - Problem List Assessment: Patient Problems Cerebrovascular accident (CVA) involving right middle cerebral artery territory (Acute) Aaron-inattention (Acute) Left homonymous hemianopsia (Acute) Nausea (Acute) Right carotid artery occlusion (Acute) Aortic valve replaced (Chronic) Coronary arteriosclerosis (Chronic) Depression (Chronic) GERD (gastroesophageal reflux disease) (Chronic) History of atrial fibrillation (Chronic) History of coronary artery stent placement (Chronic) Hypercholesterolemia (Chronic) Hypertension (Chronic) Left bundle branch block (Chronic) Mitral valve replaced (Chronic) Pacemaker (Chronic) Presence of xenogenic heart valve (Chronic) Stage 3 chronic kidney disease (Chronic) Plan: Nausea (Acute) He describes an acute onset around 2 hours ago. There is slight tenderness "over my stomach". This is a new symptom. My main concern is to rule out a cardiac cause. I will do this with a troponin I - he has a paced rhythm/LBBB making EKG difficult to interpret. His echocardiogram showed no regional wall motion abnormalities yesterday. Otherwise, I will treat this symptomatically with PPI and ondansetron Cerebrovascular accident (CVA) involving right middle cerebral artery territory (Acute)Aaron-inattention (Acute)Left homonymous hemianopsia (Acute) Right carotid artery occlusion (Acute) I reviewed Dr. Michel Lopez's note. The carotid studies suggest a RCA occlusion. If we want to be unequivocal about this we can perform a CTA. The exact timing of this is not urgent and it is an open question as to whether with a tight stenosis and his comorbidities whether the risks of surgery/stenting would outweight any possible benefit. He may have already infarcted the at risk territory. Aortic valve replaced (Chronic) This looks OK on echocardiogram Coronary arteriosclerosis (Chronic) my concern for a cardiac cause of nausea Depression (Chronic) This is exacerbated by both his CVA directly and his worry about the next steps GERD (gastroesophageal reflux disease) (Chronic) for PPI History of atrial fibrillation (Chronic) none on telemetry History of coronary artery stent placement (Chronic) Hypercholesterolemia (Chronic) secondary diagnosis Hypertension (Chronic) Reasonable control Left bundle branch block (Chronic) Mitral valve replaced (Chronic) This looks OK on echocardiogram Pacemaker (Chronic) Presence of xenogenic heart valve (Chronic) This looks OK on echocardiogram Stage 3 chronic kidney disease (Chronic) Improved Cr today I spoke to the [id number]-yei Christie Mcmahan. She is a RN and is the family patient account representative. She wanted the carotid artery report reviewed as it was equivocal. This is occluded. I discussed this with radiologist. The only question is whether there is a dissection - anticoagulation would hazardous. There is no reason for a CTA angiogram to confirm the carotid US study. The best plan is acute rehab in [facility]. The patient and family agree with this. I will rule out cardiac causes for his nausea before making the transfer.
[2016-06-20] MEDS ORDERED: Ondansetron INJ* 2 MG/ML VIAL IV PRN (08:05)
[2016-06-20] MEDS: Pantoprazole IV* 40 MG IV SCH (10:01)
[2016-06-20] MEDS: Atorvastatin* 80 MG TAB PO SCH (10:01)
[2016-06-20] MEDS: Clopidogrel TAB* 75 MG PO SCH (10:01)
[2016-06-20] MEDS: Methylphenidate TAB* 10 MG PO SCH ×2 (10:01→20:37)
[2016-06-20] MEDS: Bisoprolol TAB* 5 MG PO SCH (10:01)
[2016-06-20] MEDS: Aspirin EC Low Dose* 81 MG TAB.EC PO SCH (10:02)
[2016-06-20] MEDS: CMC:Desvenlafaxine (NF) 50 MG TAB PO SCH (10:02)
[2016-06-20] MEDS: Famotidine TAB* 20 MG PO SCH ×2 (10:02→20:37)
--- NOTE | 2016-06-20 11:02 | PN ---
Progress Note - Progress Note SOAP: 81 yo PPM, AVR/MVR (tissue), CABG, CKD, R MCA stroke due to likely right carotid occlusion (so far CUS supported), with left sensory partial neglect and visual field deficits. Repeat exam for me today pretty good, without clear field cut on L, and only patchy extinction on L (was correct in arm and face vs extinguished in leg). Having said that, dr alfonso an hour earlier had noted left sided sensory loss, neglect and field cut, and his dtr in law had noted some left arm drift, ie we discussed that exams/deficits can fluctuate acutely and/or maybe by the time of my exam there was a learning/coaching curve. d/w pt and family that post stroke improvement can occur up to a year out; per family he has been a little accepting of his deficit; this may reflect neglect and/or nihilism. Pt signed out to dr Alfonso, who actually cares for his , and already knows Greg socially. Both pt and his had a recent GI illness, with dehydration ; she actually was hospitalized overnight as well, and is better this am. I also met one of their daughter in laws, who is a nurse in [place], [place]; the children all live remotely. The medical-social plan in the works is to get the home with home therapy vs likely acute rehab for Greg. Cr down to 1.65. TTE had normal EF and negative bubble study. Recs as per yesterday note consider CTA to definitively prove occlusion vs high grade stenosis; latter situation could involve outpatient referral to vascular surgery if patient/ interested in reviewing such options for termite treater secondary prevention. Interrogate PPM for any sub clin afib.
[2016-06-20] MEDS: ALPRAZolam TAB* 0.25 MG PO PRN (20:37)
[2016-06-20] MEDS: Acetaminophen TAB* 325 MG PO PRN (20:38)
[2016-06-20] MEDS: Mirtazapine TAB* 15 MG PO SCH (20:38)
[2016-06-21 05:36] LABS: Hematocrit 42 % (42-52); Hemoglobin 14.2 g/dl (14.0-18.0); Mean Corpuscular HGB Conc 34 g/dl (31-36); Mean Corpuscular Hemoglobin 34 pg (27-31); Mean Corpuscular Volume 99 fL (80-94); Mean Platelet Volume 9 um3 (7.4-10.4); Red Blood Count 4.21 10^6/ul (4.0-5.4); Red Cell Distribution Width 13 % (10.5-15); White Blood Count 8.2 10^3/ul (3.5-10.8)
[2016-06-21 05:50] LABS: BUN/Creatinine Ratio 23.2 (8-20); Calcium 9.4 mg/dL (8.6-10.3); EGFR African American 45.1 (>60); EGFR Non-African American 35.1 (>60)
[2016-06-21 05:51] LABS: Potassium 4.2 mmol/L (3.5-5.0)
[2016-06-21] MEDS: Heparin VIAL(*) 5000 UNITS/ML VIAL (FIVE THOUSAND) SUBCUT SCH ×3 (06:08→21:13)
[2016-06-21] MEDS: CMC:Desvenlafaxine (NF) 50 MG TAB PO SCH (09:33)
[2016-06-21] MEDS: Pantoprazole IV* 40 MG IV SCH (09:33)
[2016-06-21] MEDS: Famotidine TAB* 20 MG PO SCH ×2 (09:34→21:09)
[2016-06-21] MEDS: Methylphenidate TAB* 10 MG PO SCH (09:34)
[2016-06-21] MEDS: Clopidogrel TAB* 75 MG PO SCH (09:34)
[2016-06-21] MEDS: Aspirin EC Low Dose* 81 MG TAB.EC PO SCH (09:34)
[2016-06-21] MEDS: Bisoprolol TAB* 5 MG PO SCH (09:34)
[2016-06-21] MEDS: Atorvastatin* 80 MG TAB PO SCH (09:35)
--- NOTE | 2016-06-21 10:58 | PN ---
Subjective - Subjective Reason for Note: Progress Note History: He is less nauseated today. His major problem is depression. He has a history of severe depression. This has been controlled with psychopharmacology. It is now exacerbated. He has no headache, no awareness of new neurological deficit. He continues to have inattention to the left. Speech is fluent. His memory is flawed - he doesn't remember OT/PT yesterday. 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 Coronary arteriosclerosis (Chronic) I25.10 Depression (Chronic) F32.9 GERD (gastroesophageal reflux disease) (Chronic) K21.9 History of atrial fibrillation (Chronic) Z86.79 History of coronary artery stent placement (Chronic) Z95.5 Hypercholesterolemia (Chronic) E78.00 Hypertension (Chronic) I10 Left bundle branch block (Chronic) I44.7 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 Pacemaker (Chronic) Z95.0 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 Stage 3 chronic kidney disease (Chronic) N18.3 Current Medications: Current Medications Acetaminophen (Tylenol Tab*) 650 mg PO Q4H PRN PRN Reason: FEVER/PAIN Last Admin: 06/20/16 20:38 Dose: 650 mg Alprazolam (Xanax Tab*) 0.25 mg PO BEDTIME PRN PRN Reason: INSOMNIA Last Admin: 06/20/16 20:37 Dose: 0.25 mg Aspirin (Aspirin Ec Low Dose*) 81 mg PO DAILY [facility] Last Admin: 06/21/16 09:34 Dose: 81 mg Atorvastatin Calcium (Lipitor*) 80 mg PO DAILY [facility] Last Admin: 06/21/16 09:35 Dose: 80 mg Bisoprolol Fumarate (Zebeta Tab*) 5 mg PO DAILY [facility] Last Admin: 06/21/16 09:34 Dose: 5 mg Clopidogrel Bisulfate (Plavix Tab*) 75 mg PO DAILY [facility] Last Admin: 06/21/16 09:34 Dose: 75 mg Desvenlafaxine Succinate (Pristiq (Nf)) 150 mg PO DAILY [facility] Last Admin: 06/21/16 09:33 Dose: 150 mg Famotidine (Pepcid Tab*) 20 mg PO BID [facility] PRN Reason: Protocol Last Admin: 06/21/16 09:34 Dose: 20 mg Heparin Sodium (Porcine) (Heparin Vial(*)) 5,000 units SUBCUT Q8HR [facility] Last Admin: 06/21/16 06:08 Dose: 5,000 units Hydrocortisone (Hytone Cream 1%*) 1 applic TOPICAL BID PRN PRN Reason: rash Last Admin: 06/19/16 00:57 Dose: 1 applic Methylphenidate HCl (Ritalin Tab*) 10 mg PO BID [facility] Last Admin: 06/21/16 09:34 Dose: 10 mg Mirtazapine (Remeron Tab*) 60 mg PO BEDTIME [facility] Last Admin: 06/20/16 20:38 Dose: 60 mg Nitroglycerin (Nitroglycerin Tab 0.4 Mg*) 0.4 mg SL Q5M PRN PRN Reason: PAIN - CHEST Ondansetron HCl (Zofran Inj*) 4 mg IV Q4H PRN PRN Reason: NAUSEA/VOMITING Last Admin: 06/20/16 07:51 Dose: 4 mg Ondansetron HCl (Zofran Inj*) 4 mg IV Q4H PRN PRN Reason: NAUSEA Pantoprazole Sodium (Protonix Iv*) 40 mg IV Q24H [facility] Last Admin: 06/21/16 09:33 Dose: 40 mg - Review of Systems Pulmonary: Positive: Cough, Sputum, Exercise Intolerance Negative: Respiratory Distress, Shortness of Breath Cardiology: Positive: Shortness of Breath - mild on exertion Negative: Chest Pain, Palpitations, Swelling of Ankles Gastroenterology: Negative: Abdominal Pain, Nausea, Vomiting, Difficulty Swallowing, Change in Bowel Habits Genital - Urinary: Negative: Dysuria, Polyuria Neurology: Positive: Change in Vision, Change in Balancing, Change in Memory, Change in Walking, Hx of Stroke\TIA Negative: Headache, Migraines, Diplopia, Dizziness, Change in Coordination, Change in Speech, Change in Sphincter Function, Numbness\Paresthesiae, Unexplained Weakness, Hx of Seizures Home Medications: Home Medications Medication Instructions Recorded Confirmed Type ALPRAZolam TAB* [Xanax TAB*] 0.25 - 0.5 mg PO DAILY PRN MDD 0.5 05/14/15 History mg Atorvastatin* [Lipitor 20 MG*] 20 mg PO DAILY 05/14/15 06/18/16 History Aspirin EC Low Dose* [Ecotrin EC 81 mg PO DAILY 06/18/16 06/18/16 History Low Dose*] Atorvastatin* [Lipitor*] 80 mg PO DAILY 06/18/16 06/18/16 History Bisoprolol TAB* [Zebeta TAB*] 5 mg PO DAILY 06/18/16 06/18/16 History Calcium Carbonate-Vitamin D 1 tab PO DAILY 06/18/16 06/18/16 History [Calcium 600 + D] Clopidogrel TAB* [Plavix TAB*] 75 mg PO DAILY 06/18/16 06/18/16 History Desvenlafaxine (NF) [Pristiq (NF)] 50 mg PO DAILY MDD 150 mg 06/18/16 06/18/16 History Desvenlafaxine(NF) [Pristiq(NF)] 100 mg PO DAILY MDD 150 mg 06/18/16 06/18/16 History Epleronone (NF) [Inspra (NF)] 25 mg PO DAILY 06/18/16 06/18/16 History Methylphenidate TAB* [Ritalin TAB*] 10 mg PO BID 06/18/16 06/18/16 History Mirtazapine TAB* [Remeron TAB*] 60 mg PO BEDTIME 06/18/16 06/18/16 History Multiple Vitamins W/ Minerals 1 tab PO DAILY 06/18/16 06/18/16 History [Centrum] Nitroglycerin TAB 0.4 MG* 0.4 mg SL Q5M PRN 06/18/16 06/18/16 History Ranitidine TAB (NF) [Zantac TAB 150 mg PO BID 06/18/16 06/18/16 History (NF)] Allergies: Allergies Allergy/AdvReac Type Severity Reaction Status Date / Time Amiodarone Allergy Intermediate Unknown Verified 05/14/15 11:27 Reaction Details Ramipril [From Altace] Allergy Intermediate Unknown Verified 05/14/15 11:27 Reaction Details Diltiazem [Cardizem] Allergy Unknown Verified 05/14/15 11:27 Reaction Details Sulfa Antibiotics Allergy Unknown Verified 05/14/15 11:24 Reaction Details Objective - Vital Signs Vital Signs: Vital Signs 06/20/16 06/20/16 06/20/16 15:32 18:06 19:44 Temperature 97.9 F 98.4 F Pulse Rate 79 77 Respiratory 16 16 16 Rate Blood Pressure 122/53 147/57 (mmHg) O2 Sat by Pulse 97 95 Oximetry 06/20/16 06/20/16 06/20/16 20:00 20:37 22:37 Temperature Pulse Rate Respiratory 18 18 18 Rate Blood Pressure (mmHg) O2 Sat by Pulse Oximetry 06/20/16 06/21/16 06/21/16 23:40 04:35 07:59 Temperature 98.3 F 97.7 F 98.2 F Pulse Rate 74 68 79 Respiratory 16 16 16 Rate Blood Pressure 137/61 120/48 135/65 (mmHg) O2 Sat by Pulse 95 91 97 Oximetry 06/21/16 08:00 Temperature Pulse Rate Respiratory 16 Rate Blood Pressure (mmHg) O2 Sat by Pulse Oximetry - Intake and Output Intake and Output: Intake & Output 06/18/16 06/19/16 06/20/16 06/21/16 11:59 11:59 11:59 11:59 Intake Total 260 Output Total 0 Balance 260 Weight 175 lb 9.6 oz Intake: Oral 260 Output: Urine 0 Other: Estimated Void Medium # Bowel Movements 0 # Voids 1 ADLs: Meal Record Start: 06/18/16 16: 09 Freq: DAILY@0900,1400,1800 Status: Active Document 06/20/16 18:00 [id number] (Rec: 06/20/16 21:56 [id number] TELE-C32) ADLs: Meal Record Start: 06/18/16 17: 05 Freq: DAILY@0900,1400,1800 Status: Complete Created 06/18/16 17:05 [id number] (Rec: 06/18/16 17:05 [id number] TELE-C03) Document 06/18/16 18:00 [id number] (Rec: 06/18/16 23:12 [id number] TELE-C01) Document 06/19/16 10:21 [id number] (Rec: 06/19/16 10:21 [id number] TELE-C07) Document 06/19/16 13:52 [id number] (Rec: 06/19/16 13:52 [id number] TELE-C13) Document 06/20/16 09:00 [id number] (Rec: 06/20/16 10:48 [id number] TELE-C07) Document 06/20/16 14:00 [id number] (Rec: 06/20/16 14:18 [id number] TELE-C07) Intake and Output Start: 06/18/16 16: 09 Freq: DAILY@0600,1400,2200 Status: Active Document 06/20/16 22:00 [id number] (Rec: 06/20/16 22:17 [id number] TELE-C32) Document 06/21/16 05:28 [id number] (Rec: 06/21/16 05:29 [id number] TELE-C32) Intake and Output Start: 06/18/16 17: 05 Freq: DAILY@0600,1400,2200 Status: Complete Created 06/18/16 17:05 [id number] (Rec: 06/18/16 17:05 [id number] TELE-C03) Document 06/18/16 22:00 [id number] (Rec: 06/18/16 23:12 [id number] TELE-C01) Document 06/19/16 06:00 [id number] (Rec: 06/19/16 06:15 [id number] TELE-C34) Document 06/19/16 13:52 [id number] (Rec: 06/19/16 13:52 [id number] TELE-C13) Document 06/19/16 22:00 [id number] (Rec: 06/19/16 22:22 [id number] TELE-C07) Document 06/20/16 05:40 [id number] (Rec: 06/20/16 05:40 [id number] TELE-C32) Document 06/20/16 14:00 [id number] (Rec: 06/20/16 14:18 [id number] TELE-C07) - Physical Exam General: No Cyanosis, No Anemia, No Jaundice, No Lymphadenopathy, No Clubbing Eye Exam: bilateral: PERRLA, EOMI, Vision Field - left homonymous hemianopsia Skin: Normal: Rash Lungs and Chest: Yes: Chest Expansion Full, Chest Expansion Symetrica, Percussion Note Resonant, Vessicular Breath Sounds. No: Crackles, Wheezes Heart Rate and Rhythm: Irregular - extrasystoles JVP: Not Elevated Additional Cardiovascular: Yes: Normal Heart Sounds. No: Heart Murmur, Pedal Edema Abdominal Exam: Yes: Soft, Bowel Sounds Present. No: Distention, Rigidity, Hepatomegaly, Abdominal Tenderness - Extremities Cranial Nerves II-XII Intact: No - left facial inattention - sensory Limbs: Normal Power, Normal Tone, Abnormal Sensation - left aaron-inattention, Abnormal Gait - Fine with walker. Sways with Romberg's - Neuro Orientation: A/O x3 Speech: Normal Results - Results Lab Results: Laboratory Results - last 24 hr 06/21/16 06/21/16 05:17 05:17 WBC 8.2 RBC 4.21 Hgb 14.2 Hct 42 MCV 99 H MCH 34 H MCHC 34 RDW 13 Plt Count 127 L MPV 9 Neut % (Auto) 62.5 Lymph % (Auto) 14.4 L [place] % (Auto) 17.3 H Eos % (Auto) 5.3 Baso % (Auto) 0.5 Absolute Neuts (auto) 5.1 Absolute Lymphs (auto) 1.2 Absolute Monos (auto) 1.4 H Absolute Eos (auto) 0.4 Absolute Basos (auto) 0 Absolute Nucleated RBC 0.01 Nucleated RBC % 0.1 Sodium 133 Potassium 4.2 Chloride 104 Carbon Dioxide 19 L Anion Gap 10 BUN 43 H Creatinine 1.85 H Est GFR ( Amer) 45.1 Est GFR (Non-Af Amer) 35.1 BUN/Creatinine Ratio 23.2 H Glucose 97 Calcium 9.4 Assessment - Problem List Assessment: Patient Problems Cerebrovascular accident (CVA) involving right middle cerebral artery territory (Acute) Aaron-inattention (Acute) Left homonymous hemianopsia (Acute) Nausea (Acute) Right carotid artery occlusion (Acute) Aortic valve replaced (Chronic) Coronary arteriosclerosis (Chronic) Depression (Chronic) GERD (gastroesophageal reflux disease) (Chronic) History of atrial fibrillation (Chronic) History of coronary artery stent placement (Chronic) Hypercholesterolemia (Chronic) Hypertension (Chronic) Left bundle branch block (Chronic) Mitral valve replaced (Chronic) Pacemaker (Chronic) Presence of xenogenic heart valve (Chronic) Stage 3 chronic kidney disease (Chronic) Plan: Cerebrovascular accident (CVA) involving right middle cerebral artery territory (Acute)Aaron-inattention (Acute)Left homonymous hemianopsia (Acute)Right carotid artery occlusion (Acute) He is impaired. He doesn't remember PT/OT yesterday - despite the report. He is walker dependent and doesn't like walkers. He has considerable inattention to the left - both visual and sensory - he also has a left hemianopsia. He is unaware of his deficit. However, he has full strength and normal coordination. I spoke with the powdered sugar supervisor and she told me she has reviewed his chart closely, and as he is able to walk long distances, he doesn' t qualify for PMRU. However, he probably needs subacute rehabilitation or 24/ supervision and home PT/OT Depression (Chronic) This is a major issue. I think that there are 3 components: * Underlying depression - previously partly in remission with psychopharmacology * The helplessness caused by this stroke * A biological component caused by stroke. Rehabilitation is going to be worsened by this depression. I will obtain a psychiatric consult to determine optimal psychopharmacology - this is not straightforward given he is already taking antidepressants Nausea (Acute) Resolved - anorexia present Aortic valve replaced (Chronic) secondary diagnosis Coronary arteriosclerosis (Chronic)secondary diagnosis GERD (gastroesophageal reflux disease) (Chronic) May be the cause of his nausea History of atrial fibrillation inactive History of coronary artery stent placement (Chronic) Hypercholesterolemia (Chronic) treated with high intensity statin Hypertension (Chronic) stable Left bundle branch block (Chronic) Mitral valve replaced (Chronic) Pacemaker (Chronic) Presence of xenogenic heart valve (Chronic) Stage 3 chronic kidney disease (Chronic) improved I discussed the above with the patient. His major concern is depression. I have spoken with his [id number] Christie Mcmahan. She understands the circumstances and is looking after Donna Mcmahan since her discharge yesterday. Clearly, there has been an underlying inability to cope as a couple that this acute illness has uncovered. The house is apparently a disaster and requires much cleaning, laundry etc. Also his Donna has required a lot of supervision with ADLs. There is no safe plan of discharge. She is speaking with Justyn Mcmahan, the proxy, to come up with a plan. Although Greg has partial competency, he is not fully able to make his own decisions and requires family support. He requires an acute medical bed over the weekend to determine a safe plan of discharge and for management of depression and other comorbidities. Possibilities: * subacute rehab at SNF * Home with maximal home care (at least 2 caregivers) * Movement of both and to assisted/enhanced assisted living locally or nearer their children
[2016-06-21] MEDS ORDERED: CMC:Desvenlafaxine (NF) 50 MG TAB PO SCH (17:03)
--- NOTE | 2016-06-21 17:05 | PN ---
Progress Note - Progress Note Note: Psychiatry end user consultant - see dictated consultation for details Pt. seen and evaluated, immediate recommendations: Reduce Remeron to 45mg and Pristiq to 100mg, stop PM Ritalin, stop Xanax, add on B12 level (I have ordered these). Plan to further taper down antidepressants and taper off Ritalin. Avoid deliriogenic medicines.
--- NOTE | 2016-06-21 19:32 | CONS ---
PSYCHIATRIC CONSULTATION REPORT: DATE OF CONSULT: DATE OF DICTATION: 06/21/16 IDENTIFYING DATA: Greg Mcmahan is an 81-year-old retired male with a history of outpatient psychiatric care for depression and a history of a recent stroke. Psychiatric consultation was requested for his evaluation and recommendations on medicines. HISTORY OF PRESENT ILLNESS: My information sources are case discussion with Dr. Dexter Winter, interview with Mr. Mcmahan, and conversation with his [id number] , who was present after the interview. Mr. Mcmahan was apparently in decent mental state prior to his stroke. His daughter- in-law said he was not overtly cognitively impaired and apparently depression has been very well controlled in recent years. He was admitted on June 18 after waking up on the floor at 3 a.m. and after transfer to the emergency room was found to have a subacute nonhemorrhagic infarct in the right MCA distribution. He has had cognitive symptoms, perceptual changes, and neglect. PSYCHIATRIC REVIEW OF SYMPTOMS: He denies feeling depressed. He denies anhedonia. He reports feeling "very good" about being alive. He denies wishes or emotional pain or tearfulness. He denies excessive or inappropriate anxiety. He denies perceptual disturbances. He was quite perplexed as to the circumstances. Said at one point, he thought he was at home and acknowledged really not being oriented at all. PRIOR PSYCHIATRIC HISTORY: Had outpatient care for about [address] Scott Clark for medication management and psychotherapeutic support. Apparently, depression was pretty significant around the time of the of Mr. Mcmahan's son and with intervention overtime, was quite well controlled. He eventually established on a polypharmacy regimen of high doses of two antidepressants along with an off-label use of stimulant and it seems like this has become a legacy medication regimen that is being carried along. Mr. Mcmahan could not recall prior medications he has taken. He denied any history suicide attempt. Depression has been more or less episodic over the years. He has denied a history of psychotic symptoms or bipolar spectrum symptoms. PAST MEDICAL HISTORY: Status post CABG, permanent pacemaker, peripheral neuropathy, hypertension, hyperlipidemia, prior TIA, stroke, kidney disease. MEDICATIONS: Current medication regimen: 1. Xanax 0.25 mg at bedtime p.r.n. insomnia. 2. Tylenol p.r.n. 3. Aspirin 81 mg a day. 4. Lipitor 80 mg a day. 5. Zebeta 5 mg a day. 6. Plavix 75 mg a day. 7. Pristiq 150 mg a day. 8. Pepcid 20 mg b.i.d. 9. Heparin. 10. Hydrocortisone. 11. Ritalin 10 mg b.i.d. 12. Mirtazapine 60 mg each bedtime. 13. Nitroglycerin p.r.n. 14. Zofran p.r.n. 15. Pantoprazole. FAMILY PSYCHIATRIC HISTORY: No melba illnesses or suicides. SOCIAL HISTORY: He is for over 50 years. He is a long-term resident of [place]. 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 Has three adult sons, who are all . He has grandchildren. He has been living with his recently and the family has been looking at their placement in a transitional assisted living environment. SUBSTANCE USE HISTORY: He said his wine use was excessive, but could not recall any consequences. MENTAL STATUS EXAM: Healthy-appearing elderly male who has good hygiene. He is hypokinetic with normal psychomotor activity, lying in the hospital bed. He has some apparent neglect of the left side of his visual field. He is alert and disoriented. He needed some prompting to remember that he was in the hospital and could not tell me the year within 4 years or the season. He thought it was summer. Recall was subjectively very poor with registration for simple themes only. Eye contact is good. He is pleasant and well related. Speech is spontaneous and terse. Mood is described as "fine." Affect is nonlabile and euthymic. Thought process is impoverished. Thought Content: Negative for suicidal, homicidal, or paranoid ideation. Sensorium is clear. Insight and judgment are somewhat poor and impulse control is intact. RELEVANT CLINICAL STUDIES: CT scan showed a subacute nonhemorrhagic infarct of the right MCA distribution. CLINICAL SUMMARY: An 81-year-old male with a history of chronic depression that has been well regulated in recent times and recent stroke with overt cognitive symptoms and neglect. He is on a polypharmacy regimen that is more aggressive than he needs and given the organic changes in his brain, maybe a higher risk regimen now than it was a month ago. It should be curtailed and I have specific recommendations. Any depressive symptoms are very mild and subordinate clinical problems of the current effects of the stroke. DIAGNOSES: Cognitive disorder, not otherwise specified; rule out delirium secondary to cerebrovascular event; rule out vascular dementia. RECOMMENDATIONS: Reduce antidepressant doses. Would immediately curtail Pristiq to 100 mg and Remeron to 45 mg and taper the Remeron down to dose of 15 mg a day for maintenance. Eventually Pristiq could be lowered to 50 mg for maintenance. That two-drug regimen together would be reasonable and low risk. I do not see the indication for ongoing stimulant use. The patient may be habituated to it. Therefore, a downward taper should be put in place. Additionally, we will check vitamin B12 level. Further interventions should be as per the clinical course. The patient may have an evolving cognitive status based on the acuity of stroke. Thank you for the opportunity to participate in Mr. Mcmahan's care. Please contact me if there are any additional questions or concerns. CC: Dr. Dexter Winter * [id number]/CPS #: [id number] MTDClark
[2016-06-21] MEDS: Acetaminophen TAB* 325 MG PO PRN (21:09)
[2016-06-21] MEDS: Mirtazapine TAB* 15 MG PO SCH (21:09)
[2016-06-22] MEDS: Heparin VIAL(*) 5000 UNITS/ML VIAL (FIVE THOUSAND) SUBCUT SCH ×2 (06:08→13:29)
[2016-06-22] MEDS ORDERED: Methylphenidate TAB* 10 MG PO SCH (09:00)
[2016-06-22] MEDS: Atorvastatin* 80 MG TAB PO SCH (10:42)
[2016-06-22] MEDS: Clopidogrel TAB* 75 MG PO SCH (10:42)
[2016-06-22] MEDS: Bisoprolol TAB* 5 MG PO SCH (10:42)
[2016-06-22] MEDS: Pantoprazole IV* 40 MG IV SCH (10:42)
[2016-06-22] MEDS: Aspirin EC Low Dose* 81 MG TAB.EC PO SCH (10:42)
[2016-06-22] MEDS: Famotidine TAB* 20 MG PO SCH ×2 (10:42→20:21)
[2016-06-22] MEDS ORDERED: Docusate CAP* 100 MG PO SCH (12:30)
[2016-06-22 15:34] VITALS: BP 109/64
[2016-06-22] MEDS: Mirtazapine TAB* 15 MG PO SCH (20:20)
--- NOTE | 2016-06-23 03:43 | DS ---
CC: Dr. Juan F Bucio DISCHARGE SUMMARY: DATE OF ADMISSION: 06/18/16 DATE OF DISCHARGE: 06/22/16 DISCHARGE DIAGNOSES: 1. 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 2. Right carotid occlusion. 3. Left partial homonymous hemianopsia. 4. Left visual inattention. 5. Left hemisensory partial inattention and neglect. SECONDARY DIAGNOSES: 1. Post-aortic mitral valve replacement with xenograft. 2. Coronary arteriosclerosis, post stent x2. 3. Chronic depression. 4. Gastroesophageal reflux disease. 5. Remote history of atrial fibrillation following cardiac surgery. 6. Hypercholesterolemia. 7. Hypertension. 8. Pacemaker. 9. Stage 3 chronic renal disease. HISTORY OF PRESENTING ILLNESS: Greg Mcmahan is an 81-year-old right-handed white male whose present ation is documented in Dr. Chico Patterson's admitting history and physical notes which is part of [facility] electronic medical record. He awoke on the floor at 3 a.m. on the day of presentation, was found by his , had bruises on his left third toe, left arm. She had difficulty getting him back in be d. He was confused when speaking to his son on the phone, who activated EMS. CT scan of the brain indicated a subacute non-hemorrhagic infarct in the right MCA distribution. PHYSICAL EXAMINATION: On admission vital signs, blood pressure 152/114, heart rate 70, respirations 16, oxygen saturation 100% on room air, T-max 98.3. Significant Findings: Alert and oriented x3. Cranial nerves II through XII intact. Strength 5/5 throughout, pronator drift left arm, 3/3 word r ecall, 1/3 at three minutes. Speech, fluent. Some short-term memory loss. INITIAL LABS/INVESTIGATIONS: Hemoglobin 12.9, MCV 98, platelets 139, INR 1.11. Sodium 134, potassiu m 4.9, chloride 103, bicarbonate 25, BUN 33, creatinine 1.94, lactic acid 0.7, troponin I 0.01. CT scan of the brain. Subacute nonhemorrhagic infarct right MCA distribution. Could not have a MRI due to his [employer] pacemaker. CONSULTATIONS: Neurological consultation by Dr. Michel Lopez. His consultation note is part o f the medical record. His impression, left visual field cut, sensory neglect noted in the context o f confusion and nocturnal fall. CT with evolving subacute right MCA infarct. He stated that he amos uld stay on aspirin, consider ultrasound of his carotids, telemetry to rule out atrial fibrillation. INVESTIGATIONS: Vitamin B12 570, lipids triglycerides 160, cholesterol 111, LDL 53, HDL 26.4, tropo abraham I 0.01. Transthoracic echocardiogram. Conclusion: Mild left ventricular hypertrophy, ejection fraction 55% to 60%, postsurgical hypokinesia of IV septum consistent with valve replacement, bioprosthetic aort ic valve functioning normally, bioprosthetic mitral valve functioning normally, mild TR, negative IV saline contrast study. HOSPITAL COURSE: I saw him on 06/19/16 for the first time. His Donna had stayed the night wit h him. Examination was significant for left facial sensory inattention, left homonymous hemianopsia which was partial, but left visual inattention, and he had a left hemisensory sensation in his arm and leg. His speech was normal. He was oriented. He had problems recalling his presentation. Plan tar responses are downgoing bilaterally. Ultrasound of carotids showed occlusion of the right carot id. During the remainder of his hospitalization, he continued to have some cognitive deficits and also l eft hemisensory and visual inattention and a left homonymous hemianopsia. He was not aware of his d eficits aside from having difficulty with memory. He was able to walk independently with a walker w ith slight imbalance. His stayed overnight that first night. Then, she herself became exhausted and his current illn ess uncovered in his a mild dementia and she ended up being brought in for observation in the [facility] room for one night and then she went home with her [id number], Christie Mcmahan. He was seen in consultation for his expressed depression by Dr. Juan F Bucio for review of his aggre ssive psychopharmacology. His consultation note is part of the record. He felt that the patient garntet d some confusion exacerbated by his psychopharmacology and recommended reducing Remeron to 45 mg q.h .s., Pristiq to 100 mg daily, stop the afternoon methylphenidate, stop alprazolam. He added on a B1 2 level. I saw him on the penultimate day in the hospital. He felt ready for discharge. He had PT and OT wh ich showed that he could walk along the whole hospital [place] without assistance using a walker and he nce he did not qualify for PMRU. He complained of depression. Physical examination on the penult day in the hospital - vital signs, temperature 98.2, pulse 79, respirations 16, blood pressure 1 35/65, and oxygen saturation 97% on room air. He had no cyanosis, anemia, jaundice, clubbing, or ly mphadenopathy. Cardiovascular System: His pulse was irregular with extrasystole. His venous press ure was not elevated. Heart sounds were normal. No added sounds or murmur. No pedal edema. No ca rotid bruits. Respiratory System: His chest was clear. Abdomen: Soft, nontender, no rigidity, hep atomegaly or splenomegaly. Nervous System: He exhibited left visual field cuts and also left senso ry visual inattention. Cranial nerves showed left hemifacial inattention, arms and legs left fanta-i nattention, though he has sensation on directly touching his left side. Gait was stable with a walk er. Romberg's test, he swayed, but did not fall. He was able to independently get himself out of b ed and use a walker. ASSESSMENT AND PLAN: 1. Right middle cerebral artery territory CVA and right carotid occlusion. I discussed his case in detail in person with the neurologist. The question arose about whether he required a CTA. I also discussed this with neuro-radiology. We decided against it as if he had a right carotid dissection , he would require anticoagulation and he might concert the infarct into a hemorrhage. In addition, he has stage 3 renal insufficiency and I did not wish to compromise his kidney function. I did not feel there was any likelihood of his right carotid being stented or bypassed. Hence we decided to continue maximum risk factor intervention. He was already on this prior to his presentation. This includes high intensity statin, aggressive antihypertensive medication and dual antiplatelet therapy . He requires physical therapy and occupational therapy and I discussed with the patient and his fa nikki desk representative, [id number] Christie Mcmahan, and it was concluded that he would do better being discharged home with 24 x 7 caregivers, but for both the patient and his Donna who had uncovere d dementia during his absence. 2. Depression. He has severe depression. This is being treated for the past few years paul kelly. We decided to obtain a psychopharmacology consultation from Dr. Bucio whose note is part of the record. His main concern was in a patient who is elderly and who has a recent stroke, the high dos es of his pharmacology might lead to delirium, confusion, and slow rehabilitation. We have therefor e followed his instructions in reducing the psychopharmacology and will continue to do this as an ou tpatient and he will follow up with Psychiatry for future psychopharmacology. 3. Hypertension: This is well controlled. 4. Hypercholesterolemia. This is controlled. 5. His telemetry showed no evidence of atrial fibrillation during his hospitalization. 6. Mitral and aortic valve replacements with venograft. I do not think that his strokes were relat ed to this problem, such as these previous valve replacements. 7. Cardiac pacemaker. This is operative. 8. Stage 3 chronic renal disease. This has remained stable during his hospital stay. I arranged for Dr. Haritha Bronson to round on him on his day of discharge and discharge him home if he remains stable. DISCHARGE MEDICATIONS: 1. Desvenlafaxine 100 mg every day. 2. Methylphenidate 10 mg q.a.m. 3. Mirtazapine 45 mg q.h.s. 4. Atorvastatin 20 mg q.h.s. 5. Ranitidine 150 mg twice daily. 6. Nitroglycerin 0.4 mg as needed. 7. Eplerenone 25 mg every day. 8. Multivitamin one a day. 9. Clopidogrel 75 mg every day. 10. Calcium with vitamin D 600/400 units, every day. 11. Bisoprolol 5 mg every day. 12. Atorvastatin 80 mg q.h.s. I have arranged for the patient to go home with caregivers and I will follow them up with a home vis it within the next few days. [id number]/[facility] #: [id number]
== END 2016-06-22 20:40 | disposition home health service (06) | DRG 65 ==
LOC: ED 13:27 → MEDTELE 15:21 → OBSVTOIN 06-20 13:09
PROVIDERS: ADMIT Internal Medicine; ATTEND Internal Medicine
DX: I63.511 Cerebral infarction due to unspecified occlusion or stenosis of right middle cerebral artery (principal); I25.810 Atherosclerosis of coronary artery bypass graft(s) without angina pectoris; H53.462 Homonymous bilateral field defects, left side; I13.10 Hypertensive heart and chronic kidney disease without heart failure, with stage 1 through stage 4 chronic kidney disease, or unspecified chronic kidney disease; I48.91 Unspecified atrial fibrillation; H53.9 Unspecified visual disturbance; F32.89 Other specified depressive episodes; N18.3 Chronic kidney disease, stage 3 (moderate); K21.9 Gastro-esophageal reflux disease without esophagitis; E78.00 Pure hypercholesterolemia, unspecified; I65.21 Occlusion and stenosis of right carotid artery; Z95.0 Presence of cardiac pacemaker; Z95.3 Presence of xenogenic heart valve; Z95.1 Presence of aortocoronary bypass graft; Z79.82 Long term (current) use of aspirin; Z79.899 Other long term (current) drug therapy; Z88.2 Allergy status to sulfonamides; Z88.8 Allergy status to other drugs, medicaments and biological substances; Z95.5 Presence of coronary angioplasty implant and graft
CPT/HCPCS: 36415; 70450; 80048; 80053; 80061; 82607; 83036; 83605; 84484; 85025; 85610; 93005; 93306; 93880; 99285; A9270-GY; G0378; G8978-GP-CK; G8979-GP-CI; G8980-GP-CK; G8987-GO-CJ; G8988-GO-CH; G8990-GO-CL; G8991-GO-CI; J1644; J2405